=== PATIENT | male | born 1985 | race African-American/Black ===

== ENCOUNTER 2018-06-01 18:15 | Emergency (ER) | payer BC, OTHER ==
[2018-06-01 18:57] VITALS: BP 159/90; PULSE 82; TEMP 98.2; BMI 22.6
--- NOTE | 2018-06-01 19:18 | PDOC ---
History of Present Illness - General History Source: Patient Exam Limitations: No Limitations - History of Present Illness Initial Comments: 06/01/18 19:48 The patient is a 32 year old male, with a significant PMH of asthma, who presents to the emergency department complaining of sore throat that began approximately 3 days ago. The patient states he has been intaking more alcohol than usual for the past month secondary to a in the family. He also notes urines has been clear in color for the past 2 days. The patient denies fever, nasal congestion, cough, sick contacts, or travelling. The patient mentions he works at [employer]. The patient denies chest pain, shortness of breath, headache and dizziness. Denies chills, nausea, vomit, diarrhea and constipation. Denies dysuria, frequency, urgency and hematuria. Allergies: iodine, shellfish Past surgical history: None reported Social history: Former smoker (quit 2018), drink alcohol but denies recreational drug use PCP: Dr. Augusto Gracia <Yeimi Carmona - Last Filed: 06/01/18 20:18> <Tabatha Gonzalez - Last Filed: 06/02/18 02:22> - General Chief Complaint: Sore Throat Stated Complaint: SORE THROAT. COLORLESS URINE Time Seen by Provider: 06/01/18 19:15 Past History <Yeimi Carmona - Last Filed: 06/01/18 20:18> - Past Medical History Asthma: Yes COPD: No - Immunization History Immunization Up to Date: Yes - Suicide/Smoking/Psychosocial Hx Smoking History: Former smoker Have you smoked in the past 12 months: Yes Number of Cigarettes Smoked Daily: 10 If you are a former smoker, when did you quit?: 2018 Information on smoking cessation initiated: Yes Hx Alcohol Use: Yes Drug/Substance Use Hx: No Substance Use Type: Alcohol <Tabatha Gonzalez - Last Filed: 06/02/18 02:22> - Past Medical History Allergies/Adverse Reactions: Allergies Allergy/AdvReac Type Severity Reaction Status Date / Time iodine Allergy Mild Rash Verified 06/01/18 18:50 shellfish derived Allergy Verified 06/01/18 18:50 Home Medications: Ambulatory Orders Albuterol Sulfate Inhaler - [Ventolin Hfa Inhaler -] 2 inh PO Q6H 06/01/18 Review of Systems - Review of Systems Able to Perform ROS?: Yes Comments:: 06/01/18 19:48 GENERAL/CONSTITUTIONAL: No fever or chills. No weakness. HEAD, EYES, EARS, NOSE AND THROAT:+Sore throat. No change in vision. No ear pain or discharge. CARDIOVASCULAR: No chest pain or shortness of breath. RESPIRATORY: No cough, wheezing, or hemoptysis. GASTROINTESTINAL: No nausea, vomiting, diarrhea or constipation. GENITOURINARY: No dysuria, frequency, or change in urination. MUSCULOSKELETAL: No joint or muscle swelling or pain. No neck or back pain. SKIN: No rash NEUROLOGIC: No headache, vertigo, loss of consciousness, or change in strength/ sensation. ENDOCRINE: No increased thirst. No abnormal weight change. HEMATOLOGIC/LYMPHATIC: No anemia, easy bleeding, or history of blood clots. ALLERGIC/IMMUNOLOGIC: No hives or skin allergy. <Yeimi Carmona - Last Filed: 06/01/18 20:18> *Physical Exam - Vital Signs Last Vital Signs Temp Pulse Resp BP Pulse Ox 98.2 F 82 16 159/90 99 06/01/18 18:49 06/01/18 18:49 06/01/18 18:49 06/01/18 18:49 06/01/18 18:49 - Physical Exam Comments: 06/01/18 19:48 GENERAL: Awake, alert, and fully oriented, in no acute distress HEAD: No signs of trauma EYES: PERRLA, EOMI, sclera anicteric, conjunctiva clear ENT:+ Erythema pharynx without any exudates and edema. Auricles normal inspection, hearing grossly normal, nares patent. Moist mucosa NECK: Normal ROM, supple, no lymphadenopathy, JVD, or masses LUNGS: Breath sounds equal, clear to auscultation bilaterally. No wheezes, and no crackles HEART: Regular rate and rhythm, normal S1 and S2, no murmurs, rubs or gallops ABDOMEN: Soft, nontender, normoactive bowel sounds. No guarding, no rebound. No masses EXTREMITIES: Normal range of motion, no edema. No clubbing or cyanosis. No cords, erythema, or tenderness NEUROLOGICAL: Cranial nerves II through XII grossly intact. Normal speech, normal gait SKIN: Warm, Dry, normal turgor, no rashes or lesions noted. <Yeimi Carmona - Last Filed: 06/01/18 20:18> - Vital Signs Last Vital Signs Temp Pulse Resp BP Pulse Ox 98.2 F 82 16 159/90 99 06/01/18 18:49 06/01/18 18:49 06/01/18 18:49 06/01/18 18:49 06/01/18 18:49 <Tabatha Gonzalez - Last Filed: 06/02/18 02:22> Moderate Sedation - Procedure Monitoring Vital Signs: Procedure Monitoring Vital Signs Temperature 98.2 F 06/01/18 18:49 Pulse Rate 82 06/01/18 18:49 Respiratory Rate 16 06/01/18 18:49 Blood Pressure 159/90 06/01/18 18:49 O2 Sat by Pulse Oximetry (%) 99 06/01/18 18:49 <[place] - Last Filed: 06/01/18 20:18> - Procedure Monitoring Vital Signs: Procedure Monitoring Vital Signs Temperature 98.2 F 06/01/18 18:49 Pulse Rate 82 06/01/18 18:49 Respiratory Rate 16 06/01/18 18:49 Blood Pressure 159/90 06/01/18 18:49 O2 Sat by Pulse Oximetry (%) 99 06/01/18 18:49 <Tabatha Gonzalez - Last Filed: 06/02/18 02:22> Medical Decision Making - Medical Decision Making Documentation has been prepared under my direction and personally reviewed by me in its entirety. I attest that this documented accurately reflects all work, treatment, procedures and medical decision making performed by me. As noted above, this otherwise healthy 32-year-old man presents with several day history of sore throat without other associated symptoms. No known contact with strep pharyngitis or with school-aged children. 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 Quick strep negative. Throat culture pending. Patient had provided urine sample: Visual inspection of the sample revealed that it was not colorless but actually yellow and clear. Therefore, urinalysis was not sent. The patient was reassured that occasional dilute urine is not worrisome. He should follow-up with his doctor if he has persistent large volumes of urine or persistent colorless urine. Patient will be called if the throat culture is positive. Otherwise, patient should rest, drink plenty of fluids and take anti-inflammatory/analgesic medications as needed for pain. He should return if he has persistent severe pain, high fever or severe difficulty swallowing <Tabatha Gonzalez - Last Filed: 06/02/18 02:22> *DC/Admit/Observation/Transfer - Attestations Scribe Attestion: 06/01/18 19:49 Documentation prepared by Yeimi Carmona, acting as territory sales manager medical for Tabatha Gonzalez MD. <Yeimi Carmona - Last Filed: 06/01/18 20:18> <Tabatha Gonzalez - Last Filed: 06/02/18 02:22> Diagnosis at time of Disposition: Pharyngitis Qualifiers: Pharyngitis/tonsillitis etiology: unspecified etiology Qualified Code(s): J02.9 - Acute pharyngitis, unspecified - Discharge Dispostion Disposition: HOME Condition at time of disposition: Stable - Referrals Referrals: Augusto Gracia MD [Primary Care Provider] - 1 week - Patient Instructions Printed Discharge Instructions: DI for Pharyngitis/Tonsillopharyngitis -- Adult Additional Instructions: Rest; drink plenty of fluids Ibuprofen/naproxen/acetaminophen as needed for his throat pain We will call you if throat culture is positive for strep Return to ER if you have severe pain or develop high fever/difficulty swallowing Follow-up with within the next 5-7 days - Post Discharge Activity
== END 2018-06-01 20:23 | disposition home or self-care (01) ==
LOC: FER 18:15
DX: J02.9 Acute pharyngitis, unspecified (principal)
CPT/HCPCS: 87070; 87880; 99281-25

== ENCOUNTER 2022-03-21 20:25 | Emergency (ER) | payer BC ==
[2022-03-21 20:33] VITALS: BP 135/78; PULSE 72; RESP 18; TEMP 98.3; BMI 19.9
[2022-03-21] MEDS ORDERED: DIPHTH,PERTUSS(ACELL),TET 0.5 ML DISP.SYRIN IM ONE ×2 (20:51→20:53)
== END 2022-03-21 20:59 | disposition home or self-care (01) ==
LOC: FER 20:25
PROC: 0HQ0XZZ Repair Scalp Skin, External Approach (ICD-10-PCS; principal; 2022-03-21)
PROC: 3E0234Z Introduction of Serum, Toxoid and Vaccine into Muscle, Percutaneous Approach (ICD-10-PCS; 2022-03-21)
DX: S01.01XA Laceration without foreign body of scalp, initial encounter (principal); W20.8XXA Other cause of strike by thrown, projected or falling object, initial encounter
CPT/HCPCS: 90471; 90715; 99283-25